=== PATIENT | female | born 1950 | race Caucasian/White ===

== ENCOUNTER 2018-08-19 18:12 | Inpatient (IN) ==
[2018-08-19 18:52] LABS: INR 1.02; PROTIME 14.2 Seconds (11.0-16.0)
[2018-08-19 18:54] LABS: BASO# 0.02 X1000 (0.0-0.2); BASO% 0.2 % (0.0-0.8); EOS# 0.03 X1000 (0.0-0.7); EOS% 0.3 % (0.0-10.0); HEMATOCRIT 43.2 % (37.0-47.0); HEMOGLOBIN 14.6 g/dL (12.0-16.0); IMM GRAN# 0.03 X1000 (0.0-0.04); IMM GRAN% 0.3 % (0.0-0.5); LYMPH# 1.93 X1000 (1.2-3.4); MCH 31.6 PG (27-31); MCHC 33.8 g/dL (33-37); MCV 93.5 FL (81-99); MONO% 9.3 % (1.7-9.3); MPV 10.3 FL (7.4-10.4); NEUT# 6.73 X1000 (1.4-6.5); NEUT% 69.9 % (42.2-75.2); PLT 327 X1000 (130-400); RBC 4.62 XMIL (4.2-5.4); RDW 12.3 % (11.5-14.5); WBC 9.64 X1000 (4.8-10.8)
[2018-08-19 19:00] LABS: AGAP 11; ALB/GLOB RATIO 1.4; ALBUMIN 4.1 g/dL (3.5-5.0); ALKALINE PHOSPHATASE 124 U/L (32-104); BUN 10 mg/dL (8-22); CALCIUM 8.4 mg/dL (8.8-10.2); CHLORIDE 105 mmol/L (98-107); CK PROFILE 77 U/L (24-173); COSMO 280; CREATININE 0.7 mg/dL (0.5-0.9); ESTIMATED GFR > 60; GLUCOSE 93 mg/dL (70-104); GOT 25 U/L (10-30); GPT 35 U/L (10-36); POTASSIUM 3.7 mmol/L (3.5-5.1); SODIUM 141 mmol/L (136-145); TCO2 25 mmol/L (25-35); TOTAL BILIRUBIN 0.47 mg/dL (0.20-1.00)
--- NOTE | 2018-08-19 19:12 | Diag Imaging Result Doc PS360 ---
EXAM: CT HEAD W/O CONTRAST INDICATION: weakness on left side TECHNIQUE: This exam was performed using automated exposure control, adjustment of mA or kV according to patient size, and/or use of iterative reconstruction technique. COMPARISON: None. FINDINGS: There is mild patchy low attenuation in the periventricular and subcortical white matter bilaterally suggesting microangiopathy. There is a chronic lacunar infarct versus a small Virchow-Roger space involving the right basal ganglion superiorly. There is no definite acute infarct given the limited sensitivity of CT versus MRI. There is no discrete intracranial mass, mass effect, or intracranial hemorrhage. The surrounding soft tissues and bony structures are essentially unremarkable. IMPRESSION: Chronic appearing changes as described. No definite acute intracranial pathology by CT. Electronically signed by Ruddy Ca 08/19/2018 7:09 PM
--- NOTE | 2018-08-19 19:27 | Diag Imaging Result Doc PS360 ---
EXAM: CHEST-PORTABLE INDICATION: weakness on left side TECHNIQUE: 01/13/2017 COMPARISON: None. FINDINGS: There is a stable granuloma in the right upper lobe. The lungs are clear, otherwise. There is no discrete pleural fluid collection or pneumothorax. The cardiomediastinal silhouette and central vasculature are grossly unremarkable. IMPRESSION: No evidence of acute pathology by plain radiograph. Electronically signed by Ruddy Ca 08/19/2018 7:24 PM
[2018-08-19 21:44] LABS: URINE SOURCE CLEAN CATCH
[2018-08-19 21:51] LABS: BILIRUBIN URINE NEGATIVE (NEGATIVE); BLOOD URINE NEGATIVE (NEGATIVE); COLOR YELLOW; GLUCOSE URINE NEGATIVE (NEGATIVE); KETONE URINE NEGATIVE (NEGATIVE); LEUKOCYTES URINE NEGATIVE (NEGATIVE); NITRITE URINE NEGATIVE (NEGATIVE); PROTEIN URINE TRACE mg/dL (NEGATIVE); SP GRAVITY URINE 1.009; TURBIDITY URINE CLEAR (CLEAR); UR EPITHELIAL CELLS <10 /HPF (<10); URINE BACTERIA NEGATIVE /HPF; URINE RBC <10 /HPF (<10); URINE WBC <10 /HPF (<10); UROBILINOGEN URINE NORMAL (NORMAL)
--- NOTE | 2018-08-19 22:24 | PROVIDER DOCUMENTATION ---
This chart was entered by Kylee Ca Scribe, acting as scribe for Riddhi Broderick MD. HPI-Neurological Disorder - General Chief Complaint: Fall Stated Complaint: LEFT SIDE WEAKNESS Time Seen by Provider: 08/19/18 21:24 Allergies/Adverse Reactions: Patient Allergies Allergy/AdvReac Type Severity Reaction Status Date / Time cortisone [Cortisone] Allergy Intermediate SWELLING Verified 01/13/17 22:39 Home Medications: Home Medication List Medication Instructions Recorded Confirmed Last Taken Type Alprazolam [Xanax] 1 - 2 tab PO BID 12/23/12 01/13/17 01/13/17 History Aspirin EC 81 mg PO DAILY 12/23/12 01/13/17 01/13/17 History Cholecalciferol (Vitamin D3) 1,000 unit PO TID 12/23/12 01/13/17 01/12/17 History [Vitamin D] Citalopram [Celexa] 20 mg PO DAILY 12/23/12 01/13/17 01/13/17 History Diltiazem HCl [Diltiazem 24Hr Cd] 360 mg PO DAILY 12/23/12 01/13/17 01/13/17 History Hydrochlorothiazide 25 mg PO DAILY 12/23/12 01/13/17 01/13/17 History Metoprolol Succinate 100 mg PO BID 12/23/12 01/13/17 01/13/17 History Multivitamin [Multi-Day Vitamins] 1 each PO DAILY 12/23/12 01/13/17 01/12/17 History Potassium Chloride [Klor-Con 10] 10 meq PO DAILY 12/23/12 01/13/17 01/13/17 History Vitamin E 400 unit PO BID 12/23/12 01/13/17 01/12/17 History Hydroxyzine [Atarax] 50 mg PO TID PRN #10 tablet 10/22/15 01/13/17 Unknown Rx Acetaminophen with Codeine 1 each PO Q6H PRN PRN #20 tablet 11/11/16 01/13/17 Unknown Rx [Tylenol with Codeine #3 Tablet] Acetaminophen/Diphenhydramine 1 each PO Q6H PRN #14 tablet 01/13/17 Unknown Rx [Percogesic 325-12.5 mg Tablet] - History of Present Illness-Neuro Nature of Presenting Problem: 68 yof presents to er w/co pt has cousin at bedside. pt states she fell 5 times today starting at 0400 and felt body weakness and started drooling this afte rnoon. pt states that has never happened before. pt has left sides body weakness but no facial drooping. pt has hx of htn, pt has never had an mi. pt denies loc and slurred speech. Review of Systems - Adult - REVIEW OF SYSTEMS - ADULT Constitutional: reports: no symptoms reported, other (weakness). denies: chills, fever, fatique Eyes: reports: no symptoms reported Ears, Nose, Mouth & Throat: reports: no symptoms reported Cardiovascular: reports: no symptoms reported Respiratory: reports: no symptoms reported Gastrointestinal: reports: no symptoms reported Genitourinary: reports: no symptoms reported Musculoskeletal: reports: no symptoms reported Integumentary: reports: no symptoms reported Neurological: reports: see HPI, loss of balance, other (drooling and left sided body weakness). denies: headache/migraines, slurred speech, syncope Psychiatric: reports: no symptoms reported Endocrine: reports: no symptoms reported Hematologic/Lymphatic: reports: no symptoms reported Allergic/Immunologic: reports: no symptoms reported All Other Systems: Reviewed and Negative Past History - Adult - PAST MEDICAL HISTORY-ADULT Review of Records: reports: Old Records Reviewed, Nursing Assessment Review, Medications Reviewed, Social history reviewed & non-contributory. Major Childhood Illnesses: reports: denies history Cardiovascular: reports: HTN Respiratory: reports: denies history Gastrointestinal: reports: denies history Obstetrical/Gynecological: reports: denies history Genitourinary: reports: denies history Musculoskeletal: reports: arthritis Neurological: reports: other (inheirited neuromuscular disorder) Endocrine/Immune: reports: denies history Other Conditions: reports: cataract/glaucoma (cataract) - PRIOR SURGERIES/PROCEDURES Surgical/Procedure History: reports: breast (reduction) - IMMUNIZATION STATUS Childhood Immunizations: See Nurse Assessment Flu Vaccine: See Nurse Assessment - FAMILY HISTORY Family History: reviewed, not pertinent - SOCIAL HISTORY Smoking: other (former) Substance Use: alcohol Alcohol Use Frequency: rarely Physical Exam- Neurological - Physical Exam-Neuro Initial Vital Signs Reviewed: Yes General Appearance: appears well, alert, no apparent distress Eye Exam: bilateral eye: normal inspection, PERRL, EOMI HENMT: normocephalic/atraumatic, moist mucous membranes, normal ENT inspection Head Injury: no evidence of injury Neck: non-tender, full range of motion, supple, normal inspection Respiratory: chest non-tender, lungs clear, normal breath sounds Cardiovascular: normal peripheral pulses, regular rate, rhythm Abdominal Exam: normal bowel sounds, non tender, soft Peripheral Pulses: radial (R): 2+, radial (L): 2+ Extremity: non-tender. 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 negative: abnormal eye position, abnormal gag reflex, abnormal pupil position, abnormal speech, facial asymmetry, facial droop, facial paresthesias, facial weakness Motor/Sensory: no sensory deficit, weak motor strength LUE, weak motor strength LLE. negative: no motor deficit, weak motor strength RUE, weak motor strength RLE Neurologic: motor weakness (left sided). 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 nml as tested, grossly normal, no motor/sensory deficits, facial droop, focal weakness Integumentary: normal color, normal turgor, warm/dry Psych/Mental Status: normal mood/affect, normal thought content, normal thought process, oriented x 3 - Glascow Coma Scale Best Eye Response: (4) open spontaneously Best Verbal Response: (5) oriented Best Motor Response: (6) obeys commands Total Glascow Score: 15 Progress - PLAN OF CARE/RESULTS Progress/Plan/Lab Results: Vital Signs - 8 hr 08/19/18 18:26 Temperature 98.7 F Pulse Rate 80 Respiratory Rate 18 Blood Pressure 200/96 O2 Sat by Pulse Oximetry 96 Laboratory Results - last 24 hr 08/19/18 08/19/18 08/19/18 18:32 18:33 18:33 WBC 9.64 RBC 4.62 Hgb 14.6 Hct 43.2 MCV 93.5 MCH 31.6 H MCHC 33.8 RDW Std Deviation 12.3 Plt Count 327 MPV 10.3 Immature Gran % (Auto) 0.3 Neut % (Auto) 69.9 Lymph % (Auto) 20.0 L [place] % (Auto) 9.3 Eos % (Auto) 0.3 Baso % (Auto) 0.2 Immature Gran # (Auto) 0.03 Neut # (Auto) 6.73 H Lymph # (Auto) 1.93 [place] # (Auto) 0.90 H Eos # (Auto) 0.03 Baso # (Auto) 0.02 PT INR PTT (Actin FS) Sodium 141 Potassium 3.7 Chloride 105 Carbon Dioxide 25 Anion Gap 11 BUN 10 Creatinine 0.7 Estimated GFR/1.73 m2 > 60 BUN/Creatinine Ratio 14 Glucose 93 Calculated Osmolality 280 Calcium 8.4 L Total Bilirubin 0.47 AST 25 ALT 35 Alkaline Phosphatase 124 H Creatine Kinase 77 Troponin T Total Protein 7.0 Albumin 4.1 Globulin 2.9 Albumin/Globulin Ratio 1.4 Triglycerides 104 Cholesterol 170 LDL Cholesterol Direct 111 VLDL Cholesterol, Calc 21 HDL Cholesterol 45 Coronary Risk Interp 4.00 Urine Source Urine Color Urine Turbidity Urine pH Ur Specific [place] Urine Protein Ur Glucose (Stick) Ur Ketones (Stick) Urine Blood Urine Nitrite Urine Bilirubin Urobilinogen Dipstick Urine Leukocytes Urine WBC (Auto) Urine RBC (Auto) U Epithel Cells (Auto) Urine Bacteria (Auto) 08/19/18 08/19/18 08/19/18 18:33 18:33 21:32 WBC RBC Hgb Hct MCV MCH MCHC RDW Std Deviation Plt Count MPV Immature Gran % (Auto) Neut % (Auto) Lymph % (Auto) [place] % (Auto) Eos % (Auto) Baso % (Auto) Immature Gran # (Auto) Neut # (Auto) Lymph # (Auto) [place] # (Auto) Eos # (Auto) Baso # (Auto) PT 14.2 INR 1.02 PTT (Actin FS) 35.0 Sodium Potassium Chloride Carbon Dioxide Anion Gap BUN Creatinine Estimated GFR/1.73 m2 BUN/Creatinine Ratio Glucose Calculated Osmolality Calcium Total Bilirubin AST ALT Alkaline Phosphatase Creatine Kinase Troponin T < 0.010 Total Protein Albumin Globulin Albumin/Globulin Ratio Triglycerides Cholesterol LDL Cholesterol Direct VLDL Cholesterol, Calc HDL Cholesterol Coronary Risk Interp Urine Source CLEAN CATCH Urine Color YELLOW Urine Turbidity CLEAR Urine pH 7.0 Ur Specific [place] 1.009 Urine Protein TRACE A Ur Glucose (Stick) NEGATIVE Ur Ketones (Stick) NEGATIVE Urine Blood NEGATIVE Urine Nitrite NEGATIVE Urine Bilirubin NEGATIVE Urobilinogen Dipstick NORMAL Urine Leukocytes NEGATIVE Urine WBC (Auto) <10 Urine RBC (Auto) <10 U Epithel Cells (Auto) <10 Urine Bacteria (Auto) NEGATIVE Orders Category Date Time Status Cardiac Monitoring DIRECTED Care 08/19/18 18:30 Completed FALL Precautions NOW Care 08/19/18 21:36 Active Saline Loc NOW Care 08/19/18 18:30 Completed CHEST-PORTABLE [RAD] Stat Exams 08/19/18 18:[address] HEAD W/O CONTRAST [CT] Stat Exams 08/19/18 18:30 Completed CBC WITH ELECTRONIC DIFF [HEME] Stat Lab 08/19/18 18:33 Completed CK PROFILE [SP CHEM] Stat Lab 08/19/18 18:33 Completed COMPREHENSIVE METABOLIC PANEL [CHEM] Stat Lab 08/19/18 18:33 Completed LIPID PROFILE W/DIR LDL [LIPIDS] Stat Lab 08/19/18 18:32 Completed PROTIME WITH INR [COAG] Stat Lab 08/19/18 18:33 Completed PTT [COAG] Stat Lab 08/19/18 18:33 Completed TROPONIN T Stat Lab 08/19/18 18:33 Completed URINALYSIS [URINALYSIS] Stat Lab 08/19/18 21:32 Completed Altered Mental Status Stat Oth 08/19/18 18:29 Ordered EKG [EKG] Stat Ther 08/19/18 18:30 Ordered Result Diagrams: 08/19/18 18:33 08/19/18 18:33 - REASSESSMENT Reassessment #1 Time Reassessed: 22:22 Status: other (SPOKE TO HOSPITALIST; APPRECIATE THEIR ASSISTANCE.) - EKG 1 Time of EKG reading by physician:: 21:27 EKG Read and Signed by:: Riddhi Broderick EKG Interpretation (*Must complete 3 of following elements*): Normal Rate: 73 Rhythm: NSR [place]: normal QRS: normal IA Interval: normal ST Wave: normal Departure - Departure Date of Disposition Decision: 08/19/18 Time of Disposition Decision: 22:23 DIAGNOSIS: Stroke-like symptom, Left-sided weakness Disposition: ADMITTED INPATIENT 09 Certified Medical Emergency: Emergent Condition: Serious Referrals and Follow-Ups: Josette Eduardo MD [Primary Care Provider] - - Critical Care Note This patient required my direct & personal management of CC.: No Attestation - Physician/ ANTONIET[place] Attestation Patient care was provided by Advanced Practice Provider:: No The physician spent face to face time with patient:: Yes Advanced Practice Provider documentation review:: Supervising physician onsite and consulted in the evaluation and care of this patient. The physician did have a face to face encounter with the patient. - NIH Stroke Scale NIH Type: Initial Evaluation Level of Consciousness: 0-Alert LOC Questions (ask month and age): 0-Answers Both Correctly LOC Commands (ask to open & close eyes;make a fist, let go): 0-Obeys Both Correctly Best Gaze (horizontal eye movement): 0-Normal Visual (use finger movement, counting or visual threat): 0-No Visual Loss Facial Palsy (show teeth or raise eyebrows & close eyes tght: 0-Symmetrical Movement Motor Function-left arm: 2-Some Effort Against [place] Motor Function-right arm: 0-Normal Motor Function-left le-Some Effort Against [place] Motor Function-right le-Normal Limb Ataxia([id number], or heel to meneses): 0-No Ataxia Sensory(pin prick to face,arms,trunk,legs-compare side/side): 0-No Ataxia Best Language(name item/read sentence.Ex-Down to Earth): 0-No Aphasia Dysarthria(Pt read words or say words Ex.Mama,Tip-Top,Thanks: 0-Normal Articulation Extinction and Inattention: 0-Normal Modified Samuel Score Criteria: 0-no symptoms This chart was documented by the indicated scribe, (Kylee Ca, Scribe) and accurately reflects the services I performed and decisions made by me, Riddhi Broderick MD, as attested by the provider's signature.
[2018-08-20] MEDS ORDERED: VASOTEC IV PRN (00:12)
--- NOTE | 2018-08-20 00:14 | HISTORY AND PHYSICAL ---
PRIMARY CARE PHYSICIAN: Dr. Eduardo. CHIEF COMPLAINT: Left-sided weakness. HISTORY OF PRESENTING ILLNESS: A 68-year-old female with a history of hypertension who presented to emergency department with 1-day history of having left-sided weakness. The patient states that she apparently woke up earlier with this kind of symptoms and then she began falling. She was brought to the emergency department. Suspected possibly she had a stroke and subsequently, she will require admission for further management. At the time of my examination, she had denied any headache, fever, chills, chest pain, shortness of breath, hemoptysis, melena, weight changes but complained of left-sided weakness. PAST MEDICAL HISTORY: Includes hypertension. PAST SURGICAL HISTORY: None. ALLERGIES: Cortisone. CURRENT MEDICATIONS: Currently not taking any. SOCIAL HISTORY: A 30 pack year history smoking. Denies any history of alcohol or illicit drug use. FAMILY HISTORY: No history of coronary disease. REVIEW OF SYSTEMS: Fourteen point review of systems is as in HPI. Other systems negative. PHYSICAL EXAMINATION: GENERAL: Cooperative, friendly female. She is resting more comfortably now. VITAL SIGNS: Temperature 98.7 degrees, pulse 80, respiration 18, blood pressure 200/96. HEENT: Atraumatic, normocephalic. Extraocular movements intact. PERRLA. NECK: No masses. CHEST: Clear to auscultation. CARDIOVASCULAR: Regular rate and rhythm. S1, S2. ABDOMEN: Soft. Positive bowel sounds. EXTREMITIES: No edema. NEUROLOGIC: She is she is awake, alert, oriented x3. Strength 3/5 left upper and lower extremities. Speech is intact. : No bladder distention. SKIN: Warm. LABORATORIES AND STUDIES: WBC 9.64, hemoglobin 14.6, hematocrit 43.2, platelets 327,000. Sodium 141, potassium 3.7, chloride 105, CO2 25, BUN is 10, creatinine 0.7, glucose 93. CT of the head shows chronic appearing changes. No acute intracranial pathology. ASSESSMENT: A 68-year-old female with a history of hypertension who presented to emergency department with 1-day history of having left-sided weakness. She was evaluated in the emergency department. It was suspected possibly she had a stroke. Subsequently she will need admission for further management. 1. Left-sided weakness. We will need to rule out cerebrovascular accident. 2. Hypertension uncontrolled. 3. Ongoing tobacco abuse. PLAN: 1. We will admit patient to medical floor with telemetry. 2. Continue with stroke workup. 3. We will check an MRI of the brain with and without. 4. We will consult Neurology. 5. We will allow permissive hypertension. 6. Counseled patient on smoking cessation. 7. Put patient on DVT prophylaxis with SCDs. 8. Continue follow and reassess. Make further recommendation based on patient's clinical course. cc: Gavin Marion MD
[2018-08-20 07:11] LABS: BASO# 0.02 X1000 (0.0-0.2); BASO% 0.2 % (0.0-0.8); EOS# 0.04 X1000 (0.0-0.7); EOS% 0.5 % (0.0-10.0); HEMOGLOBIN 14.1 g/dL (12.0-16.0); IMM GRAN# 0.03 X1000 (0.0-0.04); IMM GRAN% 0.4 % (0.0-0.5); LYMPH# 2.09 X1000 (1.2-3.4); LYMPH% 24.4 % (20.5-51.1); MCH 31.4 PG (27-31); MCHC 33.6 g/dL (33-37); MCV 93.5 FL (81-99); MONO# 0.81 X1000 (0.11-0.59); MONO% 9.5 % (1.7-9.3); MPV 10.2 FL (7.4-10.4); NEUT# 5.58 X1000 (1.4-6.5); PLT 311 X1000 (130-400); RBC 4.49 XMIL (4.2-5.4); RDW 12.3 % (11.5-14.5); WBC 8.57 X1000 (4.8-10.8)
[2018-08-20 07:43] LABS: POTASSIUM 3.3 mmol/L (3.5-5.1)
[2018-08-20 07:46] LABS: AGAP 12; BUN 9 mg/dL (8-22); CALCIUM 8.4 mg/dL (8.8-10.2); CHLORIDE 103 mmol/L (98-107); COSMO 278; CREATININE 0.8 mg/dL (0.5-0.9); ESTIMATED GFR > 60; GLUCOSE 99 mg/dL (70-104); SODIUM 140 mmol/L (136-145); TCO2 25 mmol/L (25-35)
[2018-08-20] MEDS ORDERED: KLOR-CON PO ONE (09:47)
--- NOTE | 2018-08-20 10:11 | PROGRESS NOTE ---
DATE: 08/20/2018 SUBJECTIVE: This patient is doing better today. I do not see any weakness on my physical exam. She was able to stand up by herself. She felt a little bit dizzy, but yesterday, she was having problems with her balance but not today. As per the patient, every time she tried to get up or walk, she was leaning toward the left side. No visual problems. No problem swallowing. I will start this patient on a diet, aspirin, Lipitor, and I will replace the potassium. At this moment pending MRI echocardiogram and carotid ultrasound. Neurology department will evaluate this patient. OBJECTIVE: Vital Signs: Temperature 98.2 degrees, pulse 68, respiratory rate 18, blood pressure 153/92, oxygen saturation 97% on room air. HEENT: Head normocephalic, no trauma. PERRLA. Neck: Supple. No JVD. No masses. Central trachea. Chest: Clear to auscultation. No wheezing. No rales. Cardiovascular: RRR. Abdomen: Soft, nontender, nondistended. No hepatosplenomegaly. Extremities: No edema. No clubbing. No cyanosis. Neurological: This patient is alert. She is oriented x3. No motor deficits at this moment. Speech is intact. No facial deviation. LABORATORY DATA: WBC 8.5, hemoglobin 14.1, hematocrit 42, platelet 311,000. Sodium 140, potassium 3.3, chloride 103, bicarbonate 25, BUN 9, creatinine 0.8, glucose 99, calcium 8.4. ASSESSMENT AND PLAN: 1. Admitted due to left-sided weakness, due to possible cerebrovascular accident (CVA) versus transient ischemic attack (TIA). Pending at this moment, MRI of the head, carotid ultrasound, and echocardiogram. She is feeling much better. No facial deviation or weakness at this moment. As per the patient, this is her baseline. We will wait for the results and Neurology evaluation. 2. Uncontrolled hypertension. For now we will allow permissive high blood pressure. I will wait for the results. 3. Ongoing tobacco abuse. This patient has been highly advised against tobacco use. I will continue with daily cessation education. cc: Malik Mckenzie MD
[2018-08-20] MEDS: ASPIRIN PO SCH (11:27)
--- NOTE | 2018-08-20 12:08 | EKG Report ---
Test Performed on : 08/19/2018 9:29:25 PM Test Reason : weakness on left side Blood Pressure : / mmHG Vent. Rate : 069 BPM Atrial Rate : 069 BPM P-R Int : 136 ms QRS Dur : 094 ms QT Int : 416 ms P-R-T Axes : 002 022 024 degrees QTc Int : 445 ms Normal sinus rhythm. Normal ECG When compared with ECG of 23-DEC-2012 09:53, Nonspecific T wave abnormality no longer evident in Anterior leads Unconfirmed Result
--- NOTE | 2018-08-20 16:06 | CONSULTATION ---
DATE OF CONSULTATION: 08/20/2018 REASON FOR CONSULT: Stroke history. HISTORY OF PRESENT ILLNESS: This is a 68-year-old right-handed female with history of hypertension and hyperlipidemia who was admitted yesterday with concerns for stroke. History is from the patient. She reports a she has not been taking her home antihypertensives in recent days. She has not been feeling quite well. On the day of admission she woke up and felt well. She got up, walked to the bathroom and minutes after awakening she had sudden onset of left sided weakness. She says that her left arm and leg stopped working. She listed to the left and fell in the bathroom. She was unable to get up. Her friend who finally arrived and who is at bedside said that pt was unable to move her left arm and leg. She had also reported left-sided numbness. No other symptoms. No headache, no visual disturbance. Her symptoms have improved since the onset, but she reports that she is not at 100% baseline. Head CT on arrival did not show acute findings. MRI was attempted this afternoon, but the patient is claustrophobic and was unable to stay for the test. Her blood pressure on arrival was 200/96. She denies loss of consciousness. The patient denies any personal history of stroke or seizure or other major neurologic event. PAST MEDICAL HISTORY: Hypertension, recently stopped taking her antihypertensive, hyperlipidemia. FAMILY HISTORY: Mother with lung cancer. No history of stroke or seizure. SOCIAL HISTORY: She is a current smoker. No alcohol or illicits. 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 She lives alone with her 2 dogs. ALLERGIES: Listed to cortisone. CURRENT MEDICATIONS: She takes aspirin 81 mg daily at home. She was also taking something for blood pressure and at one point took Lipitor for hyperlipidemia. She has had some difficulty with affording medications, which is part of the reason why she stopped taking some of them. She was continuing to take low-dose aspirin daily. REVIEW OF SYSTEMS: Balance of 12 was conducted and otherwise negative except that detailed in the HPI. PHYSICAL EXAMINATION: Vital Signs: Blood pressure 200/96 on arrival, current 153/92 pulse, pulse 60s, afebrile, respirations 18, 100% on room air. Examination: Ms. Mckeon is supine in bed in no acute distress. She is awake, alert, fully oriented, attentive and spontaneous. Speech is fluent. No language disturbance. No dysarthria. Follows simple and complex commands. Left, right and digit distinction preserved. Pupils are equal, round, reactive to bright light. Gaze conjugate. Extraocular movements are full. Visual powell intact to direct confrontational testing. She can hear. Face symmetric with equal activation. Facial sensation reported intact. Tongue is midline. Palate elevates symmetrically. Shoulder shrug is full. There is a left-sided drift. Tone is symmetric in the limbs. Strength on the right arm and leg is full power. On the left deltoid is 5/5. I can barely overcome the triceps on the left. The biceps is intact. Implement Mechanic are symmetric. In the left lower extremity I can overcome the knee flexion, but otherwise there is full strength there. [id number] is intact on the right. On the left, she seems to be a bit ataxic. Rapid alternating movements are slightly slowed on the left compared to the right. Heel to meneses, also a little bit more difficult on the left than on the right. Reflexes are absent at the ankles, 2+ at the knees, 2+ at the wrists. No clonus. Plantar response is upgoing on the left, down on the right side. I did not test her gait. DIAGNOSTICS: Head CT noncontrast was personally reviewed, showing no acute findings. Triglycerides 79, LDL 120, HDL is 44. ASSESSMENT AND PLAN: Acute onset left hemiparesis and sensory loss, possible ataxia. Suspect ischemic stroke. Symptoms have significantly improved since onset, but it does not appear she is at baseline. Agree with MRI of the brain and she would likely require some sedation to go down for this. I agree with high potency statin therapy. She reports difficulty affording medications, so I would take that into consideration. I would increase her aspirin to full dose therapy she has been taken low-dose daily at home. Agree with transthoracic echo and carotid Dopplers. Speech therapy to clear for diet. PT/OT. She was encouraged to quit smoking. I agree with allowing some permissive hypertension over the next day. cc: Kaycee Valenzuela MD MTDD
--- NOTE | 2018-08-20 17:23 | ECHO REPORT ---
ORDER DATE: 08/20/2018 INDICATION: Stroke. M-MODE MEASUREMENTS: Left ventricle end diastole: 4.6. Left ventricle end systole: 3.1. Posterior wall: 1.1. Interventricular septum: 1.2. Left atrium: 4.0. Aortic root diameter: 3.3. SUMMARY OF 2-DIMENSIONAL IMAGIN. The left ventricular function appears to be normal. Ejection fraction of 60%. The study is difficult. 2. The aortic valve appears to be normal. Color flow mapping is unremarkable. 3. The mitral valve looks grossly unremarkable. Color flow mapping shows a mild degree of regurgitation. 4. Pulsed wave Doppler of mitral inflow shows mild reversal of the E and the A ratio. Ratio is 0.8. 5. Tissue Doppler of septal and lateral mitral annulus averages 7 cm. There is no diastolic dysfunction. 6. Tricuspid valve shows mild degree of regurgitation. 7. Pulmonary pressure is estimated at 31 mmHg. The pulmonic valve appears to be grossly normal. 8. There is no pericardial effusion, mass, and no thrombus. 9. The right-sided chambers appear to be unremarkable. Clinical correlation is recommended. cc: MD Gavin Bagley MD
[2018-08-20] MEDS: LIPITOR PO SCH (22:11)
[2018-08-21 08:11] LABS: AGAP 12; BUN 12 mg/dL (8-22); CALCIUM 8.3 mg/dL (8.8-10.2); CHLORIDE 108 mmol/L (98-107); COSMO 285; CREATININE 0.9 mg/dL (0.5-0.9); ESTIMATED GFR > 60; GLUCOSE 104 mg/dL (70-104); POTASSIUM 3.7 mmol/L (3.5-5.1); SODIUM 143 mmol/L (136-145); TCO2 23 mmol/L (25-35)
[2018-08-21] MEDS: ASPIRIN PO SCH (09:24)
[2018-08-21] MEDS ORDERED: NORVASC PO SCH (10:15)
--- NOTE | 2018-08-21 10:25 | PROGRESS NOTE ---
DATE: 08/21/2018 SUBJECTIVE: Ms Mckeon was admitted with acute onset left-sided weakness and gait difficulty. She reports she went to bed feeling well one night, woke around 4 a.m. to get to the bathroom and could not walk because of unsteadiness and dizziness with left-sided weakness and tendency to veer or fall to the left. She fell a few times and was able to get up. She did not notice slurred speech. There was never trouble chewing or swallowing. She did not notice vision disturbance. There was not altered consciousness, altered awareness, memory gap. She did not have a significant headache. She is right-handed. She reports now the left-sided weakness has steadily improved, better today than yesterday, but not resolved. She has not had any new deficits. Initial systolic blood pressure was 200. Systolic blood pressures have ranged 150s to 170s over the last 24 hours. She is taking aspirin and statin here. She has medicine ordered for systolic blood pressures greater than 200 and she has not required a dose of that. At home, she had stopped taking her antihypertensive medicines and might have stopped all of her other medicines. She reports she quit smoking about a week ago. CT scan did not show any definite acute change. She reports after between 5 and 10 minutes in the MRI scanner, she began to panic and that scan was not completed. OBJECTIVE: On exam, she is awake and alert. Head and neck are unremarkable. She has left hemiparesis grading 4/5. Facial motility is normal and symmetric. Tongue is midline. She has prominent left hemiataxia. There is no tremor. She has some inconsistent responses on sensory testing but generally reports slightly diminished pinprick and light touch appreciation on the left. Proprioception is good at the left 2nd finger PIP joint. Visual powell are full, tested grossly. IMPRESSION AND PLAN: Sudden onset left hemiparesis and hemiataxia with uncertain sensory deficit. She has risk factors for cerebrovascular event. Negative CT does not exclude acute ischemic stroke. MRI will be helpful in defining lesion but will not likely change her management or outcome. I encouraged her to try to keep an open mind and we might consider sedative and re-attempt MRI. If she is not willing to have MRI here, we might consider open MRI at an outpatient facility after discharge. For now, I do not have any urgent suggestions. I would continue following blood pressure and treat that if more elevated, continue her aspirin and statin, follow blood sugar, continue physical therapy. I encouraged her to continue off of cigarettes. Thanks for asking Neurology to see Ms. Mckeon. cc: MD IVORY Rojas III
[2018-08-21] MEDS ORDERED: ATIVAN IV ONE (11:22)
[2018-08-21] MEDS ORDERED: APRESOLINE PO SCH (13:00)
[2018-08-21] MEDS ORDERED: VASOTEC IV PRN (13:07)
--- NOTE | 2018-08-21 13:18 | Diag Imaging Result Doc PS360 ---
MRI BRAIN W/WO CONTRAST - 08/20/2018 INDICATION: cva COMPARISON: 08/19/2018 FINDINGS: There is a tiny focus of restricted diffusion in the posterior limb of the right internal capsule. There is mild patchy deep cerebral white matter hyperintensity compatible with chronic microvascular disease. This also affects the zofia to a lesser extent. No intracranial mass or hemorrhage. The ventricles and sulci are normal. IMPRESSION: Tiny recent lacunar infarction in the posterior limb of the right internal capsule. Mild chronic microvascular ischemic changes of the cerebral white matter. Electronically signed by Harvey Tariq 08/21/2018 1:16 PM
--- NOTE | 2018-08-21 13:47 | PROGRESS NOTE ---
DATE: 08/21/2018 SUBJECTIVE: She seems to be doing better today. As per the patient, she is not at her baseline. Pending MRI, yesterday, we tried to do it but the patient refused. Today, she is willing to do it. Neurology Department following this patient. I have placed this patient on blood pressure medication since her blood pressure is still elevated. As per the patient, she stopped taking blood pressure medication a long time ago. We will monitor. OBJECTIVE: Vital Signs: Temperature 98.1 degrees, pulse 72, blood pressure 191/101, and oxygen saturation 96 percent on room air. HEENT: Head normocephalic. No trauma. PERRLA. Neck: Supple. No JVD. No masses. Central trachea. Chest: Clear to auscultation. No wheezing. No rales. Cardiovascular: RRR. Abdomen: Soft, nontender, and nondistended. No hepatosplenomegaly. Extremities: No edema. No clubbing. No cyanosis. Neurological: The patient is alert. She is oriented x3. No motor deficits at this moment. Her speech is intact. No facial deviation. LABORATORY: Sodium 143, potassium 3.7, chloride 108, bicarbonate 23, BUN 12, creatinine 0.9, glucose 104, and calcium 8.3. ASSESSMENT AND PLAN: 1. Transient ischemic attack versus stroke, pending MRI at this moment. Echocardiogram showed an ejection fraction of 60% with no major problems, pending MRI and carotic ultrasound results. 2. Uncontrolled hypertension. We allowed [*]blood pressure for 24 hours, and now I put this patient on hydralazine 3 times a day and amlodipine twice a day. As per the patient, she stopped taking blood pressure medication a long time ago. 3. Ongoing tobacco use. This patient has been highly advised against tobacco use. I will continue with daily cessation education. 4. Overall, this patient is doing better. Blood pressure is still uncontrolled. I have placed this patient on blood pressure medication. Let's see how she does. I will wait for the results of the carotid ultrasound and MRI. Likely, this patient can be discharged in the next 24 hours if everything is controlled including her blood pressure. cc: Malik Mckenzie MD
[2018-08-21] MEDS: APRESOLINE PO SCH (16:18)
[2018-08-21] MEDS: LIPITOR PO SCH (22:31)
[2018-08-21] MEDS: NORVASC PO SCH (22:31)
[2018-08-22 07:31] VITALS: BP 169/89
[2018-08-22] MEDS ORDERED: ASPIRIN PO SCH (09:00)
--- NOTE | 2018-08-22 09:33 | PROGRESS NOTE ---
DATE: 08/22/2018 LOCATION: Room 324A. SUBJECTIVE: Ms. Mckeon reports no new neurologic problems. OBJECTIVE: She was able to tolerate brain MRI with and without contrast yesterday. This scan shows a tiny area of restricted diffusion in the right internal capsule, posterior limb. This is consistent with her mild left-sided weakness and marie-ataxia. PLAN: I encouraged her to continue off cigarettes, to be aggressive with management of her risk factors, and to keep followup in her primary clinic. In light of her stable course, subcortical stroke, and 3 to 4-day timeframe since onset, I believe we can treat her blood pressure. She has tolerated amlodipine. I will be glad to see Ms. Mckeon as an outpatient, if needed. Thank you for asking Neurology to see her. cc: Ibrahima Gilliam III, MD [facility]
[2018-08-22] MEDS: APRESOLINE PO SCH ×2 (09:40→12:07)
[2018-08-22] MEDS: NORVASC PO SCH (09:41)
[2018-08-22] MEDS ORDERED: PRINZIDE 10/12.5MG PO SCH (10:15)
--- NOTE | 2018-08-22 21:39 | DISCHARGE SUMMARY ---
ADMISSION DATE: 08/19/2018 DISCHARGE DATE: 08/22/2018 DISCHARGE DIAGNOSES: 1. Recent acute lacunar infarct in the posterior limb of the right internal capsule. 2. Uncontrolled hypertension. 3. Ongoing tobacco use. 4. Medical noncompliance. PROCEDURES: 1. Chest x-ray dated 08/19/2018 impression: No evidence of acute pathology by plain radiograph. 2. Head CT dated 08/19/2018 impression: Chronic-appearing changes; no acute intracranial pathology by CT. 3. Brain MRI dated 08/20/2018 impression: Tiny recent lacunar infarction in the posterior limb of the right internal capsule; mild chronic microvascular ischemic changes of the cerebral white matter. HOSPITAL COURSE: A 68-year-old female with a past medical history of uncontrolled hypertension presented to the emergency department with 1-day history of having left-sided weakness. She was admitted on 08/19/2018. Apparently she woke up earlier with these kind of symptoms and then she began falling to the left side. She was brought to the emergency department. At the time of the doctor examination she denied any headache, fever, chills, chest pain, shortness of breath, hemoptysis, melena or weight changes, but she was having some left- sided weakness. Strength was 3/[address] scan done did not show any abnormality, as well as the chest x-ray. Brain MRI showed a recent lacunar infarction in the posterior limb of the right internal capsule, with mild chronic microvascular ischemic changes of the cerebral white matter. Echocardiogram showed an ejection fraction of 60% and pulmonary arterial pressure of 31 mmHg; no pericardial effusion, mass or thrombus. She started working with physical therapy. Blood pressure was elevated we allowed permissive hypertension for the first 24 hours. Then we placed this patient on treatment for the blood pressure, which was better compared with admission but still elevated today. The patient wants to go home, and she will be discharged with [*]followup by a primary doctor. She used to see Dr. Eduardo and we had a conversation with the doctor, since she stopped following up with this doctor in 2017. Dr. Eduardo is willing to talk to the patient and decide if she will continue taking care of her or not, but at least she will talk to her. We have scheduled an appointment for this patient on 08/27/2018 at 10 a.m. At the moment of discharge the patient was in a stable medical condition, tolerating p.o. and ambulating with assistance. She uses a cane and also a walker at home. PHYSICAL EXAMINATION: Vital signs: Temperature 97.9 degrees, pulse 66, respiratory rate 17, blood pressure 169/89, oxygen saturation 98% on room air. HEENT: Head normocephalic. No trauma. PERRLA. Neck supple. No JVD. No masses. Central trachea. Chest clear to auscultation. No wheezing. No rales. Abdomen is soft, nontender, nondistended. No hepatosplenomegaly. Extremities: No edema. No clubbing. No cyanosis. Neurologic: The patient is alert and oriented x3. I do not see any focal deficits, but generalized weakness. DIAGNOSTIC DATA: Carotid ultrasound results around 0 to 39% bilaterally. LABORATORY DATA: Sodium 143, potassium 3.7, chloride 108, bicarbonate 23, BUN 12, creatinine 0.9, glucose 104, calcium 8.3. DISCHARGE MEDICATIONS: Amlodipine 5 mg p.o. b.i.d.; Lipitor 10 mg p.o. at bedtime; aspirin 325 mg p.o. daily; hydralazine 25 mg p.o. t.i.d.; lisinopril/hydrochlorothiazide 10/12.5 mg p.o. daily. Time discharging this patient was 35 minutes. cc: Malik Mckenzie MD
--- NOTE | 2018-08-23 14:02 | Carotid Study ---
DATE: 08/20/2018 PROCEDURE: Bilateral carotid ultrasound study. REQUESTING PHYSICIAN: Gavin Marion MD. INTERPRETING PHYSICIAN: Montana Levi MD. TECH: [place]. INDICATIONS: CVA. EQUIPMENT: Favoe[employer] E9 ultrasound system with a 9LD transducer. OBSERVED DATA RIGHT LEFT Brachial Blood Pressure Carotid Pulse Bruits: Carotid/Sub DIAGRAM OF ULTRASOUND IMAGING R L RIGHT INT EXT INT EXT LEFT Jese (cm/s) Jese (cm/s) Subclavian 91/0 Subclavian 76/0 CCA Proximal 79/16 CCA Proximal 95/21 CCA Distal 77/18 CCA Distal 57/21 Bulb 63/18 Bulb 45/16 ICA Proximal 62/21 ICA Proximal 57/21 ICA Mid 74/27 ICA Mid 65/26 ICA Distal 79/29 ICA Distal 79/28 ECA 67/16 ECA 47/10 Vertebral 52/20 A Vertebral 54/18 A ICA/CCA Ratio 0.99 ICA/CCA Ratio 0.83 % Stenosis 0-39% % Stenosis 0-39%. FINDINGS: There appears to be some minimal atherosclerosis, which at this time does not produce a hemodynamically flow-limiting stenosis. Both vertebral arteries are antegrade flow. INTERPRETATION: By strict velocity criteria, no hemodynamically significant flow-limiting stenosis. cc: MD Gavin Hanks MD
== END 2018-08-22 15:34 | disposition home or self-care (01) | DRG 65 ==
LOC: ED 18:12 → 3N 23:00 → SUATTDRO 23:00
PROVIDERS: ATTEND Internal Medicine
CPT/HCPCS: 70450; 70553; 71010; 71045; 80048; 80053; 80061; 81001; 82550; 83721; 84484; 85025; 85610; 85730; 92523; 93005; 93306; 93880; 97110; 97116; 97162; 97530; 99285; A9270; A9579; J2060